=== PATIENT | female | born 2000 | race Caucasian/White ===

== ENCOUNTER 2025-06-01 10:28 | Emergency (ER) | payer OTHER ==
[~2025-06-01 10:28] MED LIST: Iopamidol 370 76% 100 ML VIAL ONE
[2025-06-01 11:16] LABS: #Basophils 0.2 thou/uL (0.0-0.2); #Eosinophils 0.3 thou/uL (0.0-0.7); #Lymphocytes 1.7 thou/uL (1.20-3.40); #Monocytes 0.6 thou/uL (0.11-0.59); #Neutrophils 6.4 thou/uL (1.40-6.50); %Basophils 1.9 % (0.0-1.0); %Eosinophils 2.9 % (0.0-10.0); %Lymphocytes 18.6 % (21.0-51.0); %Monocytes 6.3 % (0.0-10.0); %Neutrophils 70.2 % (42.0-75.0); Hematocrit 44.4 % (36.0-47.0); Hemoglobin 14.4 g/dL (12.0-16.0); Mean Corpuscular Hemoglobin 27.2 pg (27.0-31.0); Mean Corpuscular Volume 84.1 fl (78.0-98.0); Platelet Count 387 10x3/uL (130-400); Red Blood Cell (RBC) Count 5.28 mill/uL (4.20-5.40); White Blood Cell (WBC) Count 9.1 10x3/uL (4.8-10.8)
[2025-06-01 11:34] LABS: INR-International Normal Ratio 1.0; Prothrombin Time 12.9 sec (12.0-14.7)
[2025-06-01 11:35] LABS: BHCG - Serum Negative (NEGATIVE); PTT 26.6 sec (22.9-36.1); Pregs Control Background? CLEAR/WHITE (CLR/WHITE); Pregs Control Bar Appear? YES (CONTROL BAR)
[2025-06-01 11:42] LABS: ALT (SGPT) 27 U/L (Less than 34); AST (SGOT) 34 U/L (11-34); Albumin 4.4 g/dL (3.1-4.5); Alkaline Phosphatase 62 U/L (40-110); Anion Gap 14 mmol/L (10-20); BUN (Urea Nitrogen) 17 mg/dL (7.0-18.7); Bilirubin, Total 0.3 mg/dL (0.3-1.2); Calc. Creatinine Clearance 0 mL/min (70-130); Calcium 8.9 mg/dL (7.8-10.44); Carbon Dioxide 21 mmol/L (22-29); Chloride 108 mmol/L (98-107); Globulin 3.0 g/dL (2.4-3.5); Glucose 95 mg/dL (70-105); Potassium 3.8 mmol/L (3.5-5.1); Sodium 139 mmol/L (136-145)
[2025-06-01 11:48] LABS: Troponin I Less than 0.010 ng/mL (< 0.028)
[2025-06-01 11:57] LABS: Glucose, Urine (Dipstick) Negative (Negative); Leukocyte Negative (Negative); Protein, Urine (Dipstick) Negative (Neg-Trace); Specific Gravity, Urine Less/Equal 1.005 (1.005-1.030)
[2025-06-01 12:04] LABS: Bacteria/HPF 1+ HPF (None Seen); CAUTI Indications for Culture Dysuria,urgency,freq; RBC/HPF None Seen HPF (0-3); WBC/HPF 0-3 HPF (0-3)
[2025-06-01 12:05] LABS: Urine Culture Reflex No No
[2025-06-01] MEDS ORDERED: Acetaminophen 500 MG TAB ONE (12:16)
[2025-06-01] MEDS ORDERED: Bacitracin 1 PK ONE (13:26)
== END 2025-06-01 13:40 | disposition home or self-care (01) ==
LOC: MADERS 10:28
DX: S63.602A Unspecified sprain of left thumb, initial encounter (principal); S20.219A Contusion of unspecified front wall of thorax, initial encounter; S30.11XA Contusion of abdominal wall, initial encounter; S40.021A Contusion of right upper arm, initial encounter; S60.511A Abrasion of right hand, initial encounter; V98.8XXA Other specified transport accidents, initial encounter
CPT/HCPCS: 71260; 72125; 74177; 80053; 80307; 81001; 84484; 84703; 85025; 85610; 85730; 93005; Q9967